=== PATIENT | male | born 1975 | race Caucasian/White ===

== ENCOUNTER 2016-10-09 06:18 | Inpatient (IN) | payer OTHER ==
[~2016-10-09] VITALS: Ht 182.9 cm; Wt 89.4 kg
--- NOTE | ~2016-10-09 | CARDNUC ---
[facility] [place] [address] CARDIAC NUCLEAR IMAGING REPORT Name: PASQUALE HANKINS Room #: 441-P [facility] IN [facility]#: [id number] Admission: 10/09/16 Attend Phys: Chapincito Abbott MD Discharge: Date of : 71 Date of Service: 10/10/16 1312 Report #: [id number] THIS REPORT FOR: //name// CC: [facility] physician/PCP Chapincito Abbott DATE OF SERVICE: 10/10/2016 Myocardial perfusion imaging study using regadenoson. PRIMARY CARE PHYSICIAN: 10/10/2016. INDICATION: Chest pains. GENDER: Male. CORONARY HISTORY: None. CARDIOVASCULAR RISK FACTORS: Diabetes mellitus, hypertension and tobacco use. CARDIAC MEDICATIONS: None. TYPE OF STUDY: The patient underwent a SPECT study. STRESS PROTOCOL: A total of 0.4 mg of regadenoson was injected intravenously, followed by Cardiolite. The patient did not ambulate during the procedure. HEMODYNAMIC DATA: The resting heart rate was 90 beats per minute, with a blood pressure of 119/70 mmHg. Following regadenoson infusion, the heart rate increased to 107 beats per minute and the systolic blood pressure did not significantly change. The patient had symptoms consistent with regadenoson, but no chest discomfort. ELECTROCARDIOGRAM: The resting electrocardiogram revealed sinus rhythm, otherwise normal. Following regadenoson, there were no significant arrhythmias or ST segment changes. PERFUSION IMAGING: Myocardial perfusion imaging was performed using Cardiolite, 11.0 mCi for the resting images and 34.0 mCi for the stress images. This was a same-day rest-stress imaging protocol. Gated SPECT images were obtained. Comparison of the post-pharmacologic stress and rest images reveal homogeneous uptake of isotope within all myocardial segments. The gated portion of the study revealed normal global and segmental LV systolic function, ejection fraction of 57%. [facility] [place] [address] CARDIAC NUCLEAR IMAGING REPORT Name: PASQUALE HANKINS Room #: 441-P [facility] IN [facility].#: [id number] Admission: 10/09/16 Attend Phys: Chapincito Abbott MD Discharge: Date of : 71 Date of Service: 10/10/16 1312 Report #: [id number] IMPRESSION: 1. Clinical response, nondiagnostic. 2. Stress ECG response, nonischemic. 3. Perfusion imaging, nonischemic. 4. Ventricular function, normal. CONCLUSION: This study is of low probability for inducible ischemia or prior infarct. There is normal global and segmental LV systolic function. <ELECTRONICALLY SIGNED> By: Christiano Ware MD 10/11/16 0758 1312 1415 Christiano Ware MD /nt
--- NOTE | ~2016-10-09 | EKG ---
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 : 1975 Requested By: Sampson Terrell Order Number: [id number] MD: Harjit Oliveira Measurements Intervals [place] Rate: 119 P: 76 [place]: 140 QRS: 268 QRSD: 80 T: 46 QT: 316 QTc: 445 Interpretive Statements Sinus tachycardia Markedly posterior QRS axis Borderline low voltage, extremity leads Compared to ECG 09/08/2016 13:54:26 Posterior QRS axis now present Poor R-wave progression no longer present Electronically Signed On 10-09-2016 8:10:46 HEAT TREAT INSPECTOR by Harjit Oliveira [email or web address] <ELECTRONICALLY SIGNED> By: Harjit Oliveira MD 10/09/16809 0 0 Harjit Oliveira MD /CHARANJIT
--- NOTE | ~2016-10-09 | 2DMMODE ---
[facility] [place] [address] 2 D/M-MODE ECHOCARDIOGRAM Name: PASQUALE HANKINS Room #: 441-P [facility]#: [id number] Admission: 10/09/16 Attend Phys: Chapincito Abbott MD Discharge: Date of : 71 Date of Service: 10/10/16 1031 Report #: [id number] THIS REPORT FOR: //name// Transthoracic Echocardiography Ordering physician: Christiano Ware MD Referring physician: Christiano Ware MD Horse Stud Worker: Stephanie Martell Indications/History: Chest pain. Hx: ETOH abuse. BP: 111 / HR: 80bpm Height: 72in Weight: 197.6lb 58 Study data: M-mode, complete 2D, complete spectral Doppler, and color Doppler. Location: Echo laboratory. Routine. Image quality was good. 2D measurements Normal Normal LVID ED 48.7mm 36-57 IVS ED 10.5mm 6-11 LVID ES 33.7mm 23-40 LVPW ED 11.1mm 6-11 LA volume 16ml/m2 16-28 AoRoot diam 36.2mm 21-37 index ED LVOT diameter 22mm 18-23 Findings: Left ventricle: The cavity size was normal. Wall thickness was normal. Systolic function was normal. The estimated ejection fraction was in the range of 55% to 60%. Wall motion was normal. Right ventricle: The cavity size was normal. Systolic function was normal. Right atrium: The atrium was normal in size. Left atrium: The atrium was normal in size. Volume index: 16ml/m2 (S). Aortic valve: Structurally normal valve. Doppler: There was no stenosis. No regurgitation. Peak velocity: 99.3cm/s (S). [address] [address] 2 D/M-MODE ECHOCARDIOGRAM Name: PASQUALE HANKINS Room #: 441-P [facility] IN M.R.#: [id number] Admission: 10/09/16 Attend Phys: Chapincito Abbott MD Discharge: Date of : 71 Date of Service: 10/10/16 1031 Report #: [id number] Mitral valve: Structurally normal valve. Doppler: There was no evidence for stenosis. No regurgitation. Peak E-wave velocity: 60cm/s. Peak A-wave velocity: 51.9cm/s. Tricuspid valve: Structurally normal valve. Doppler: There was no evidence for stenosis. Trivial regurgitation. Regurgitant peak velocity: 205.2cm/s. Peak RV-RA gradient: 17mm Hg (S). Pulmonic valve: Structurally normal valve. Doppler: There was no evidence for stenosis. Trivial regurgitation. Pericardium: There was no pericardial effusion. Aorta: Aortic root: The aortic root was normal in size. Pulmonary artery: Systolic pressure was estimated to be 22mm Hg. Diastolic function: Features are consistent with a pseudonormal left ventricular filling pattern, with concomitant abnormal relaxation and increased filling pressure (grade 2 diastolic dysfunction). Systemic veins: Inferior vena cava: The vessel was normal in size; the respirophasic diameter changes were in the normal range (= 50%). Conclusions 1. Left ventricle: Systolic function was normal. The estimated ejection fraction was in the range of 55% to 60%. Wall motion was normal. Features are consistent with a pseudonormal left ventricular filling pattern, with concomitant abnormal relaxation and increased filling pressure (grade 2 diastolic dysfunction). 2. Aortic valve: Structurally normal valve. There was no stenosis. No regurgitation. 3. Mitral valve: Structurally normal valve. No regurgitation. 4. Pulmonary arteries: Systolic pressure was estimated to be 22mm Hg. 5. Pericardium, extracardiac: There was no pericardial effusion. <ELECTRONICALLY SIGNED> By: Evaristo Delgaod MD, FAC 10/10/167 1031 06 Evaristo Delgado MD, FAC /ramona
[~2016-10-09 06:18] MED LIST: ACETAMINOPHEN650 M5 PO; ADVIL LIQUI-GE200 MG PO; ATIVAN1 MG PO; CHLORDIAZEPOXID10 MG PO; CHLORDIAZEPOXID25 M1 PO; CIPRO500 MG PO; DAILY VITAMIN1 EAC5 PO; FLAGYL500 MG PO; FOLIC ACID1 MG PO; HALDOL 0.5 MG0.5 M1 PO; IBUPROFEN 800800 MG PO; LANTUS SUBQ; LANTUS100 UNIT/M SUBQ; LANTUSSOLASTAR SUBQ; MULTI-VITAMIN1 EAC5 PO; NEURONTIN300 MG; NICOTINE TRANSD21 M1 TRANSDERM; NOVOLOG100 UNIT/1 SUBQ; PANTOPRAZOLE SO40 M1 PO; PERCOCET 5-3251 EACH PO; PRENATAL VITAMIN PO; PRILOSEC 20 MG20 MG PO; THIAMINE HCL100 MG PO; TRINATE TABLET1 TAB PO; TYLENOL325 MG PO; VISTARIL 25 MG25 M1 PO; VITAMIN B-1100 M1 PO; VITAMIN B-1100 M2 PO; ZOFRAN ODT4 MG DISSOLVE; ZOFRAN ODT4 MG PO
[2016-10-09 06:24] VITALS: BP 146/98
[2016-10-09 06:54] LABS: HEMATOCRIT 45.5 % (42.0-52.0); HEMOGLOBIN 15.5 gm/dL (14.0-18.0); MCH 29.1 pg (26.0-34.0); MCHC 34.2 % (28.0-37.0); MCV 85.2 fL (80.0-100.0); PLATELET COUNT 240 thou/uL (150-400); RBC 5.34 mil/uL (4.50-6.00); RDW 14.2 % (10.5-14.5); WBC 13.5 thou/uL (4.0-11.0)
[2016-10-09 06:55] LABS: MANUAL DIFF YES
[2016-10-09 06:57] LABS: ANION GAP 16 mmol/L (7-16); BUN 16 mg/dL (7-18); CALCIUM 8.7 mg/dL (8.5-10.1); CHLORIDE 97 mmol/L (98-107); CO2 23 mmol/L (21-32); CREATININE 0.9 mg/dL (0.6-1.3); GLUCOSE 332 mg/dL (70-99); POTASSIUM 4.3 mmol/L (3.5-5.1); SODIUM 136 mmol/L (136-145)
[2016-10-09 07:13] LABS: ACETAMINOPHEN < 2 ug/mL (10-30); ALBUMIN 3.8 g/dL (3.4-5.0); ALKALINE PHOSPHATASE 116 U/L (46-116); CK-MB MASS 1.2 ng/mL (<0.5-3.6); MAGNESIUM 1.7 mg/dL (1.8-2.4); NT-PRO BRAIN NAT PEPTIDE 23 pg/mL (<300); SALICYLATE 2.7 mg/dL (2.8-20.0); SGOT 10 U/L (15-37); SGPT 18 U/L (30-65); TOTAL BILIRUBIN 0.5 mg/dL (<0.1-1.0); TROPONIN-I < 0.04 ng/mL (<0.04-0.07)
[2016-10-09 07:18] LABS: APTT 26.7 Seconds (24.5-32.8); PROTIME 10.2 Seconds (9.3-11.4)
[2016-10-09 07:41] LABS: ABSOLUTE NEUTROPHILS 10.8 thou/uL (1.4-8.2); ANISOCYTOSIS 1+; TOTAL CELL COUNT 100
[2016-10-09] MEDS ORDERED: LANTUS100 UNIT/M SUBQ (08:39)
[2016-10-09 09:27] VITALS: BP 127/79
[2016-10-09 12:33] VITALS: BP 111/72
[2016-10-09 12:57] LABS: CHOLESTEROL 209 mg/dL (<200); HDL CHOLESTEROL 49 mg/dL (>40); LDL CHOLESTEROL 127 mg/dL (<100); TC:HDL 4.3 Ratio (Not establshd); TRIGLYCERIDE 167 mg/dL (<150); VLDL 33 mg/dL (<40)
[2016-10-09 17:12] VITALS: BP 102/67
[2016-10-09 20:30] VITALS: BP 102/62
[2016-10-09 23:14] LABS: FOLIC ACID > 19.9 ng/mL (>3.0)
[2016-10-09 23:55] VITALS: BP 109/66
[2016-10-10 03:55] VITALS: BP 111/58
[2016-10-10 04:00] VITALS: BP 154/70
[2016-10-10 13:07] VITALS: BP 130/87
[2016-10-10 17:48] VITALS: BP 130/79
[2016-10-10 20:20] VITALS: BP 103/59
[2016-10-11 03:40] VITALS: BP 108/73
[2016-10-11 06:15] LABS: HEMATOCRIT 46.7 % (42.0-52.0); HEMOGLOBIN 15.7 gm/dL (14.0-18.0); MCH 28.8 pg (26.0-34.0); MCHC 33.5 % (28.0-37.0); RBC 5.43 mil/uL (4.50-6.00); RDW 14.2 % (10.5-14.5); WBC 6.8 thou/uL (4.0-11.0)
[2016-10-11 06:27] LABS: CALCIUM 8.6 mg/dL (8.5-10.1); CREATININE 0.8 mg/dL (0.6-1.3); POTASSIUM 3.9 mmol/L (3.5-5.1)
[2016-10-11 08:56] VITALS: BP 108/76
[2016-10-11 13:07] VITALS: BP 107/65
[2016-10-11 16:44] VITALS: BP 106/73
[2016-10-11 21:25] VITALS: BP 111/73
[2016-10-12 03:45] VITALS: BP 111/74
[2016-10-12 07:08] VITALS: BP 93/63
[2016-10-12 10:34] VITALS: BP 93/63
[2016-10-12 10:54] VITALS: BP 93/63
[2016-10-12 11:09] VITALS: BP 116/79
[2016-10-12] MEDS ORDERED: XANAX 0.5 MG0.5 MG PO (13:04)
[2016-10-12] MEDS ORDERED: VITAMIN B-150 MG PO (13:04)
== END 2016-10-12 13:50 | disposition home or self-care (01) | DRG 897 ==
LOC: ER 06:18 → EROBS 08:05 → 4S 08:05
PROVIDERS: Emergency Medicine; Family Medicine; Nurse Practitioner
DX: F10.239 Alcohol dependence with withdrawal, unspecified (principal); F10.229 Alcohol dependence with intoxication, unspecified; E10.9 Type 1 diabetes mellitus without complications; F14.10 Cocaine abuse, uncomplicated; Z79.4 Long term (current) use of insulin; E10.65 Type 1 diabetes mellitus with hyperglycemia; F17.210 Nicotine dependence, cigarettes, uncomplicated; E83.42 Hypomagnesemia; Z60.2 Problems related to living alone; Y90.0 Blood alcohol level of less than 20 mg/100 ml; D64.9 Anemia, unspecified; E78.00 Pure hypercholesterolemia, unspecified; I20.9 Angina pectoris, unspecified; F41.9 Anxiety disorder, unspecified; Z79.899 Other long term (current) drug therapy
CPT/HCPCS: 10100

== ENCOUNTER 2016-10-17 17:40 | Emergency (ER) | payer OTHER ==
[~2016-10-17] VITALS: Ht 182.9 cm; Wt 90.7 kg
[~2016-10-17 17:40] MED LIST changes: +VITAMIN B-150 MG PO; +XANAX 0.5 MG0.5 MG PO
[2016-10-17 17:42] VITALS: BP 133/89
== END 2016-10-17 19:01 | disposition left against medical advice (07) ==
LOC: ER 17:40
DX: M54.6 Pain in thoracic spine (principal); E10.9 Type 1 diabetes mellitus without complications; F17.210 Nicotine dependence, cigarettes, uncomplicated; F15.10 Other stimulant abuse, uncomplicated; V47.5XXA Car driver injured in collision with fixed or stationary object in traffic accident, initial encounter; Y93.I9 Activity, other involving external motion; Y92.488 Other paved roadways as the place of occurrence of the external cause; Y99.8 Other external cause status

== ENCOUNTER 2019-02-01 16:21 | Inpatient (IN) | payer OTHER ==
[2019-02-01] VITALS (7 sets, daily range): BP systolic 123–143; BP diastolic 79–94
[~2019-02-01] VITALS: Ht 185.4 cm; Wt 79.4 kg
[~2019-02-01 16:21] MED LIST changes: -NEURONTIN300 MG; +NEURONTIN300 MG PO
[2019-02-01 16:43] LABS: ABSOLUTE NEUTROPHILS 8.7 thou/uL (1.4-8.2); BASOPHILS 0.8 % (0.0-2.0); EOSINOPHILS 0.6 % (0.0-3.0); HEMATOCRIT 50.1 % (42.0-52.0); HEMOGLOBIN 16.7 gm/dL (14.0-18.0); LYMPHOCYTES 17.6 % (24.0-44.0); MCHC 33.3 g/dL (28.0-37.0); MCV 86.9 fL (80.0-100.0); MONOCYTES 8.9 % (1.0-8.0); PLATELET COUNT 275 thou/uL (150-400); POLYS 72.1 % (36.0-66.0); RBC 5.76 mil/uL (4.50-6.00); RDW 13.9 % (10.5-14.5); WBC 12.1 thou/uL (4.0-11.0)
[2019-02-01 16:52] LABS: CALCIUM 10.1 mg/dL (8.5-10.1); CREATININE 1.3 mg/dL (0.7-1.3); POTASSIUM 4.3 mmol/L (3.5-5.1)
[2019-02-01 16:53] LABS: BE(vivo) -11.4 mmol/L (-2 to +3); HCO3 12.3 mmol/L (22.0-26.0); PCO2 VENOUS 24.4 mmHg (41.0-51.0); PO2 VENOUS 40.7 mmHg (35.0-45.0)
[2019-02-01 16:58] LABS: ALBUMIN 4.2 g/dL (3.4-5.0); TOTAL BILIRUBIN 1.3 mg/dL (<0.1-1.0); TOTAL PROTEIN 8.2 g/dL (6.4-8.2)
[2019-02-01] MEDS ORDERED: TRESIBA FL100 UNIT/1 SUBQ (17:03)
[2019-02-01 17:31] LABS: URINE BILIRUBIN NEGATIVE (Negative); URINE BLOOD TRACE (Negative); URINE CLARITY CLEAR; URINE COLOR YELLOW; URINE GLUCOSE-RANDOM* 3+ (Negative); URINE KETONES 3+ (Negative); URINE LEUKOCYTES-REFLEX NEGATIVE (Negative); URINE NITRITE-REFLEX NEGATIVE (Negative); URINE PROTEIN (DIPSTICK) TRACE (Negative); URINE SPECIFIC GRAVITY >= 1.030 (1.005-1.035); URINE UROBILINOGEN 0.2 E.U./dl (0.2-1.0)
[2019-02-01 17:37] LABS: AMP/METHAMP Negative (Negative); BARBITURATES Negative (Negative); BENZODIAZEPINES Negative (Negative); COCAINE Negative (Negative); METHADONE Negative (Negative); OPIATES Negative (Negative); PCP Negative (Negative)
[2019-02-01 17:42] LABS: MAGNESIUM 1.9 mg/dL (1.8-2.4); PHOSPHORUS 3.9 mg/dL (2.5-4.9)
[2019-02-01 18:21] LABS: CALCIUM 8.5 mg/dL (8.5-10.1); CREATININE 1.1 mg/dL (0.7-1.3); POTASSIUM 4.3 mmol/L (3.5-5.1)
[2019-02-01 18:50] LABS: FOLIC ACID 18.6 ng/mL (8.6-58.9)
[2019-02-01 18:59] LABS: ALBUMIN 4.4 g/dL (3.4-5.0); CALCIUM 10.4 mg/dL (8.5-10.1); CREATININE 1.3 mg/dL (0.7-1.3); POTASSIUM 4.7 mmol/L (3.5-5.1)
[2019-02-01 20:13] LABS: ALBUMIN 3.5 g/dL (3.4-5.0); CALCIUM 8.6 mg/dL (8.5-10.1); CREATININE 1.1 mg/dL (0.7-1.3); PHOSPHORUS 3.3 mg/dL (2.5-4.9); POTASSIUM 4.6 mmol/L (3.5-5.1)
[2019-02-01 22:41] LABS: ALBUMIN 3.3 g/dL (3.4-5.0); CALCIUM 8.2 mg/dL (8.5-10.1); CREATININE 1.1 mg/dL (0.7-1.3); MAGNESIUM 1.8 mg/dL (1.8-2.4); PHOSPHORUS 2.1 mg/dL (2.5-4.9); POTASSIUM 3.7 mmol/L (3.5-5.1)
[2019-02-02] VITALS (19 sets, daily range): BP systolic 104–128; BP diastolic 56–78
[2019-02-02 02:44] LABS: ABSOLUTE NEUTROPHILS 4.9 thou/uL (1.4-8.2); BASOPHILS 0.8 % (0.0-2.0); EOSINOPHILS 2.3 % (0.0-3.0); HEMATOCRIT 40.6 % (42.0-52.0); LYMPHOCYTES 30.5 % (24.0-44.0); MCH 28.9 pg (26.0-34.0); MCHC 34.1 g/dL (28.0-37.0); MCV 84.6 fL (80.0-100.0); MONOCYTES 9.6 % (1.0-8.0); PLATELET COUNT 214 thou/uL (150-400); POLYS 56.8 % (36.0-66.0); RDW 13.6 % (10.5-14.5); WBC 8.7 thou/uL (4.0-11.0)
[2019-02-02 02:46] LABS: HEMOGLOBIN 13.9 gm/dL (14.0-18.0)
[2019-02-02 02:51] LABS: CALCIUM 7.9 mg/dL (8.5-10.1); CREATININE 0.8 mg/dL (0.7-1.3); POTASSIUM 3.3 mmol/L (3.5-5.1)
[2019-02-02 02:55] LABS: ALBUMIN 3.1 g/dL (3.4-5.0); PHOSPHORUS 1.5 mg/dL (2.5-4.9)
--- NOTE | 2019-02-02 05:16 | NUR ---
ASSUMED PATIENT CARE AT 1900. PATIENT JUST PREVIOUSLY ARRIVED TO THE UNIT. INITIATED DKA PROTOCOL AND HUNG INSULIN AND FLUIDS. PATIENT C/O LUQ ABDOMINAL PAIN. NOTIFED QUARRY PLUG AND FEATHER DRILLER FOR ORDERS. PATIENT AAOX4 AND IS ON RA. PATIENT NOTED TO HAVE 2 LACERATIONS AND 1 ABRASION ON THE RIGHT KNEE FROM A FALL LAST WEEK. VITAL SIGNS REMAINED STABLE THROUGOUT THIS SHIFT. PATIENT IS NO LONGER IN DKA AND IS PROGRESSING TOWARDS GOAL.
[2019-02-02 06:45] LABS: CALCIUM 7.8 mg/dL (8.5-10.1); CREATININE 0.7 mg/dL (0.7-1.3); PHOSPHORUS 1.9 mg/dL (2.5-4.9); POTASSIUM 3.9 mmol/L (3.5-5.1); TOTAL BILIRUBIN 0.9 mg/dL (<0.1-1.0); TOTAL PROTEIN 5.8 g/dL (6.4-8.2)
--- NOTE | 2019-02-02 16:03 | NUR ---
ASSUMED CARE OF PT AT 0645. START SSI AND LONG ACTING INUSLIN. ADAM MEALS. RESTED WELL BEFORE LUNCH. PLEASANT, NO NEW COMPLAINTS. NO N/V. PRN NORCO FOR LEFT RIB PAIN. TX TO MSTELE. PSYCH WANTS PT TO DC TO REHAB FACILITY OR F/U IN OFFICE. PT WOULD LIKE TO SPEAK TO SPIRITUAL CARE TOMORROW. PROGRESSING TOWARD PLAN OF CARE.
--- NOTE | 2019-02-02 17:30 | NUR ---
PT ARRIVED TO ROOM 456 FROM ICU [id number] PT ALERT XS 4 NO PAIN NO RESP DISTRESS. IV FLUIDS STARTED ORDERED. TELE MONITOR APPLIED AND STRIP RAN FOR CHART.BLOOD SUGARS TO BE MONITORED. HAS AMOS TO ABRASION /STITCHES TO RIGHT KNEE. MOM AT BEDSIDE.
[2019-02-03 01:08] LABS: GLYCOHEMOGLOBIN (HGB A1C) 9.4 % (4.8-5.6)
--- NOTE | 2019-02-03 02:34 | NUR ---
ASSUMED CARE AROUND 1900. AXOX4. NO S/S ACUTE DISTRESS NOTED OR REPORTED AT THIS TIME. WILL CONT TO MONITOR FOR ANY CHAGNES IN CONDITION.
[2019-02-03 05:26] VITALS: BP 116/73
[2019-02-03 06:17] LABS: CREATININE 0.7 mg/dL (0.7-1.3); MAGNESIUM 1.6 mg/dL (1.8-2.4); PHOSPHORUS 2.7 mg/dL (2.5-4.9); POTASSIUM 3.7 mmol/L (3.5-5.1)
[2019-02-03 08:48] VITALS: BP 116/73
[2019-02-03] MEDS ORDERED: NOVOLOG100 UNIT/1 SUBQ (10:44)
[2019-02-03 14:58] VITALS: BP 102/61
--- NOTE | 2019-02-03 16:22 | NUR ---
PT ADMITTED RELATED TO DKA. CM REVIEWED CHART AND SPOKE WITH CARE TEAM. CM MET WITH PT AT BEDSIDE THIS DAY. PT IS A&O X4. CM ROLE INTRODUCED. PT INDICATED HE LIVES ALONE IN A HOUSE WITH 2 STEPS TO ENTER AND NO STEPS INSIDE. 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 PT INDICATED NO DME OF HH HX. CM PROVIDED LIST OF PCP'S HERE AT [facility]. PT INDICATED HE PLANS TO RETURN HOME ONCE MEDICALLY STABLE. THERE ARE NO ANTICIPATED NEEDS UPON DC. CM ABLE TO ASSIST SHOULD ANY NEEDS ARISE.
--- NOTE | 2019-02-03 18:35 | NUR ---
PT A&OX4, VSS, PAIN RIGHT FLANK AT 9 AT TIMES. PAIN IS MANAGED WITH HYDROCODONE. PT AWAITING EGD AND WILL BE NPO AT MIDNIGHT. FALL PRECAUTIONS IN PLACE. CIWA SCORE 1-3, NO ABNORMAL WITHDRAWAL SYMPTOMS NOTED AT THIS TIME. WILL CONTINUE TO MONITOR.
[2019-02-03 20:25] VITALS: BP 107/76
--- NOTE | 2019-02-04 03:17 | NUR ---
ASSUMED CARE AROUMD 1900. AXOX4. KEPT NPO P MN FOR EGD IN AM. NO S/S ACUTE DISTRESS NOTED OR REPORTED AT THIS TIME. WILL CONT TO MONITOR FOR ANY CHAGNES IN CONDITION.
[2019-02-04 04:54] VITALS: BP 97/62
[2019-02-04 07:44] VITALS: BP 102/57
[2019-02-04] MEDS ORDERED: OMEPRAZOLE 20 M20 M1 PO (12:05)
[2019-02-04] MEDS ORDERED: CARAFATE 1 GM TA1 G1 PO (12:05)
[2019-02-04 12:20] VITALS: BP 102/57
--- NOTE | 2019-02-05 17:53 | HC ---
[facility] [place] [address] CONSULTATION Name: PASQUALE HANKINS Room #: 456-P [facility] IN ..#: [id number] Admission: 02/01/19 ������������������ Attend Phys: Karime Horton Discharge: 02/04/19 ������������������ Date of : 71 Report #: [id number] THIS REPORT FOR: //name// CC: [facility] physician/PCP Mike Smith DATE OF SERVICE: 02/02/2019 HISTORY OF PRESENT ILLNESS: This patient was admitted because of concerns about alcohol intoxication and need for withdrawal. The patient also has some comorbid depression that certainly has been amplified lately as well as exacerbation of comorbidities including diabetes with concerns about diabetic ketoacidosis and hyperglycemia. The patient admits that last night he was having some passive thoughts of not wanting to live "something happen, I did not wake up, seem like that could have been okay." He was somewhat scared by these thoughts too and this is generally not a thought he has while sober that he has continued to have this morning, "I feel like a failure and that I am failing in everything," "I should have grown out of this by now." The patient is motivated for making the change, getting control of sobriety and addressing fluctuations in mood. PAST PSYCHIATRIC HISTORY: He has seen a therapist on a few occasions but never anything ongoing. Does not appear he has been on antidepressants before. There is a longstanding history of alcohol use disorder. FAMILY HISTORY: Alcohol use disorder; substance use disorder history; longstanding alcohol use disorder, can drink up to a fifth a day, sometimes more than this, generally does not drink during the day but after work, but notes there are days when he will get intoxicated after work and will not feel too hot the next day, "not going to work and start drinking earlier." There is mention in the chart about cocaine abuse but does not appear there has been much of a factor lately. ALLERGIES: No known medication allergies. CURRENT MEDICATIONS: Include alcohol detox protocol, thiamine and IV fluids. PAST MEDICAL HISTORY: Diabetes and alcohol withdrawal. SOCIAL HISTORY: He is self-employed. He has a girlfriend. Girlfriend is sober. Lives alone. ASSETS: Intelligent, motivated for treatment. LIABILITIES: Dual diagnoses. [facility] [address] [place] [address] CONSULTATION Name: PASQUALE HANKINS Room #: 456-P [facility] IN M.R.#: [id number] Admission: 02/01/19 ������������������ Attend Phys: Karime Horton Discharge: 02/04/19 ������������������ Date of : 71 Report #: [id number] MENTAL STATUS EXAMINATION: male, ectomorphic build, casually dressed, depressed mood and restricted affect. Normal rate, rhythm and speech. He is articulate. No suicidal ideation. No homicidal ideation. No hallucinations. No delusions. Insight and judgment fair. DIAGNOSES: Depressive disorder, not otherwise specified; alcohol use disorder. RECOMMENDATIONS: Continue with Ativan detox protocol, did talk to the patient about options as far as rehabilitation including residential program. However, he does not want residential program, could start in our office after discharge including individual sessions with James Morton. We will hold off on the 24 hours, getting a little bit further through the detox before looking at an antidepressant. He has never been on any of these before. I also talked for medicines for alcohol craving. Supportive therapy, substance use disorder counseling provided. ��������������������������������������������� <ELECTRONICALLY SIGNED> ���������������������������������������� By: Rosa Goodman MD ��������������������������������������������� 02/05/19 1753 1018 0248 Jasper Velarde MD /nt
--- NOTE | 2019-02-06 10:06 | PATH ---
[facility] [address] [address] PATHOLOGY RPT PROCEDURE Name: PASQUALE NAJERA Anuel Room #: 456-P [facility] IN M.R.#: [id number] ������������������ Admission: 02/01/19 ������������������ Date of : 71 Discharge: 02/04/19 Report #: [id number] Path Case #: [id number] [facility] Accession Number: [id number] . 01 Material submitted: . PART A: gastrointestinal site - RANDOM GASTRIC BIOPSY PART B: esophagus - BX OF ESOPHAGUS . 01 Clinical history: . Nausea, vomiting, dysphagia . 02 Diagnosis: A. Gastric mucosa, random gastric biopsy, endoscopic biopsy: - Mild chronic active gastritis with features of reactive gastropathy. - Negative for intestinal metaplasia or atrophy. - Negative for Helicobacter pylori (properly controlled immunohistochemical stain performed). . B. Gastroesophageal mucosa, esophageal, endoscopic biopsy: - Marked acute esophagitis associated with ulceration (please see comment). - Negative for intestinal metaplasia or dysplasia. - Focal gastric cardia-type mucosa present without any abnormalities. (IUV:johanne; 02/05/2019) QMS/02/05/2019 . 02 Comment: A GMS fungal special stain is performed on the esophageal biopsy tissue and it shows no definite fungal hyphal elements.AE1/AE3 immunohistochemical stain and CD45 immunohistochemical stain are performed on block B1 to assess the glandular appearing areas within the fibrinopurulent material. There are no dysplastic elements or malignant cells identified. There are no viral inclusions identified histologically as well. (IUV:johanne; 02/05/2019) . 02 Electronically signed: . Vidhi Diaz MD, Pathologist NPI- [id number] . 01 Gross description: . A. The specimen is received in formalin, labeled "Pasquale Najera, random gastric BX", are several irregular fragments of mederos soft tissues measuring 0.5 x 0.4 x 0.1 cm in aggregate, entirely submitted in A1. . B. The specimen is received in formalin, labeled "Pasquale Najera, BX of esophageal", are several mederos-johnson, soft tissue fragments measuring 0.4 x 0.3 x 0.1 cm in aggregate, entirely submitted in B1. [address] [address] PATHOLOGY RPT PROCEDURE Name: PASQUALE NAJERA E Room #: 456-P DIS IN M.R.#: [id number] ������������������ Admission: 02/01/19 ������������������ Date of : 71 Discharge: 02/04/19 Report #: [id number] Path Case #: [id number] (SWS; 02/04/2019) . . . . . . . . . . SHS/SHS . 02 Pathologist provided ICD-10: K29.50, K31.9, K20.9 . 02 CPT . 901741, 374059, 221321, O15924, F59264 Specimen Comment: A courtesy copy of this report has been sent to Specimen Comment: [phone], . Specimen Comment: Report sent to / DR SLADE Performed at: [address], [place] [id number] MD Ryan Wilson MD Phone: [phone] Performed at: [address] [id number] MD Vidhi Diaz MD Phone: [phone]
== END 2019-02-04 14:00 | disposition home or self-care (01) | DRG 377 ==
LOC: ER 16:21 → EROBS 18:04 → 4W 18:04 → ICU 18:34 → 4W 18:48 → ENTRNSPT 02-04 13:53 → EDTRNSPTSTS 02-04 13:54 → 4W 02-04 14:00
PROVIDERS: Internal Medicine; Nurse Practitioner Acute Care; Physician Assistant; ADMIT Hospitalist
PROC: 0DB58ZX Excision of Esophagus, Via Natural or Artificial Opening Endoscopic, Diagnostic (ICD-10-PCS; principal; 2019-02-04)
PROC: 0DB68ZX Excision of Stomach, Via Natural or Artificial Opening Endoscopic, Diagnostic (ICD-10-PCS; principal; 2019-02-04)
DX: K29.21 Alcoholic gastritis with bleeding (principal); E10.10 Type 1 diabetes mellitus with ketoacidosis without coma; F32.9 Major depressive disorder, single episode, unspecified; F14.90 Cocaine use, unspecified, uncomplicated; S80.211A Abrasion, right knee, initial encounter; R13.10 Dysphagia, unspecified; K20.9 Esophagitis, unspecified; E10.65 Type 1 diabetes mellitus with hyperglycemia; K21.9 Gastro-esophageal reflux disease without esophagitis; E86.0 Dehydration; F10.10 Alcohol abuse, uncomplicated; F17.210 Nicotine dependence, cigarettes, uncomplicated; Z81.1 Family history of alcohol abuse and dependence; Z71.6 Tobacco abuse counseling; Z79.899 Other long term (current) drug therapy; X58.XXXA Exposure to other specified factors, initial encounter; Y93.89 Activity, other specified; Y92.89 Other specified places as the place of occurrence of the external cause; Y99.8 Other external cause status
CPT/HCPCS: 10045; 10203; 62110; 62900; 70005

== ENCOUNTER 2019-04-02 10:35 | Emergency (ER) | payer OTHER ==
[~2019-04-02] VITALS: Ht 182.9 cm; Wt 81.7 kg
[~2019-04-02 10:35] MED LIST changes: +CARAFATE 1 GM TA1 G1 PO; +OMEPRAZOLE 20 M20 M1 PO; +TRESIBA FL100 UNIT/1 SUBQ
[2019-04-02 11:54] LABS: HEMATOCRIT 48.2 % (42.0-52.0); HEMOGLOBIN 16.7 gm/dL (14.0-18.0); MCH 29.3 pg (26.0-34.0); MCHC 34.7 g/dL (28.0-37.0); MCV 84.5 fL (80.0-100.0); PLATELET COUNT 204 thou/uL (150-400); WBC 6.6 thou/uL (4.0-11.0)
[2019-04-02 12:03] LABS: CALCIUM 8.9 mg/dL (8.5-10.1); CREATININE 0.8 mg/dL (0.7-1.3); POTASSIUM 4.1 mmol/L (3.5-5.1)
[2019-04-02 12:09] LABS: ALBUMIN 3.6 g/dL (3.4-5.0); TOTAL PROTEIN 6.9 g/dL (6.4-8.2)
[2019-04-02 12:32] LABS: ABSOLUTE NEUTROPHILS 4.3 thou/uL (1.4-8.2); ANISOCYTOSIS SLIGHT
[2019-04-02 14:27] LABS: URINE BILIRUBIN NEGATIVE (Negative); URINE BLOOD NEGATIVE (Negative); URINE CLARITY CLEAR; URINE COLOR YELLOW; URINE GLUCOSE-RANDOM* 3+ (Negative); URINE KETONES 1+ (Negative); URINE LEUKOCYTES-REFLEX NEGATIVE (Negative); URINE NITRITE-REFLEX NEGATIVE (Negative); URINE PROTEIN (DIPSTICK) NEGATIVE (Negative)
[2019-04-02] MEDS ORDERED: ONDANSETRON HCL4 M2 PO (14:30)
[2019-04-02 14:34] VITALS: BP 141/82
[2019-04-02 14:40] LABS: AMP/METHAMP Negative (Negative); BARBITURATES Negative (Negative); BENZODIAZEPINES Negative (Negative); COCAINE Negative (Negative); METHADONE Negative (Negative); OPIATES Negative (Negative); PCP Negative (Negative)
--- NOTE | 2019-04-03 09:35 | EKG ---
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 : 1975 Requested By: Marion Shukla Order Number: [id number] MD: Evaristo Delgado Measurements Intervals [place] Rate: 100 P: 73 [place]: 134 QRS: -72 QRSD: 88 T: 61 QT: 348 QTc: 449 Interpretive Statements Sinus tachycardia Left anterior fascicular block Compared to ECG 10/09/2016 06:21:17 No significant change was found Electronically Signed On 04-03-2019 9:35:43 CDT by Evaristo Delgado [email or web address] ��������������������������������������������� <ELECTRONICALLY SIGNED> ���������������������������������������� By: Evaristo Delgado MD, [facility] ��������������������������������������������� 04/03/19 0935 1052 1052 Evaristo Delgado MD, FACC /EPI
== END 2019-04-02 15:54 | disposition home or self-care (01) ==
LOC: ER 10:35
PROVIDERS: Nurse Practitioner Family
DX: F10.239 Alcohol dependence with withdrawal, unspecified (principal); Y90.6 Blood alcohol level of 120-199 mg/100 ml; E10.8 Type 1 diabetes mellitus with unspecified complications; F17.210 Nicotine dependence, cigarettes, uncomplicated; Z79.899 Other long term (current) drug therapy

== ENCOUNTER 2019-04-03 02:42 | Inpatient (IN) | payer OTHER ==
[~2019-04-03] VITALS: Ht 182.9 cm; Wt 79.4 kg
[2019-04-03] VITALS (8 sets, daily range): BP systolic 111–144; BP diastolic 58–88
[~2019-04-03 02:42] MED LIST changes: +ONDANSETRON HCL4 M2 PO
[2019-04-03 04:16] LABS: POTASSIUM 4.2 mmol/L (3.5-5.1)
[2019-04-03 04:22] LABS: ALBUMIN 4.1 g/dL (3.4-5.0); DIRECT BILIRUBIN 0.3 mg/dL (<0.1-0.3); TOTAL BILIRUBIN 1.1 mg/dL (<0.1-1.0); TOTAL PROTEIN 7.6 g/dL (6.4-8.2)
[2019-04-03 04:23] LABS: ABSOLUTE NEUTROPHILS 10.8 thou/uL (1.4-8.2); BASOPHILS 0.8 % (0.0-2.0); EOSINOPHILS 0.4 % (0.0-3.0); HEMATOCRIT 50.7 % (42.0-52.0); HEMOGLOBIN 16.9 gm/dL (14.0-18.0); LYMPHOCYTES 10.8 % (24.0-44.0); MCH 28.9 pg (26.0-34.0); MCHC 33.3 g/dL (28.0-37.0); MCV 86.6 fL (80.0-100.0); MONOCYTES 8.5 % (1.0-8.0); PLATELET COUNT 225 thou/uL (150-400); POLYS 79.5 % (36.0-66.0); RBC 5.86 mil/uL (4.50-6.00); RDW 13.7 % (10.5-14.5); WBC 13.5 thou/uL (4.0-11.0)
[2019-04-03 05:57] LABS: AMP/METHAMP Negative (Negative); BARBITURATES Negative (Negative); BENZODIAZEPINES Negative (Negative); COCAINE Negative (Negative); METHADONE Negative (Negative); OPIATES Negative (Negative); PCP Negative (Negative)
[2019-04-04 04:24] VITALS: BP 125/86
[2019-04-04 05:10] LABS: HEMATOCRIT 40.4 % (42.0-52.0); MCHC 33.5 g/dL (28.0-37.0); MCV 86.5 fL (80.0-100.0); RBC 4.67 mil/uL (4.50-6.00); RDW 13.8 % (10.5-14.5); WBC 8.1 thou/uL (4.0-11.0)
[2019-04-04 05:13] LABS: HEMOGLOBIN 13.5 gm/dL (14.0-18.0)
[2019-04-04 05:16] LABS: CALCIUM 7.9 mg/dL (8.5-10.1); CREATININE 0.9 mg/dL (0.7-1.3); POTASSIUM 3.5 mmol/L (3.5-5.1)
[2019-04-04 07:31] VITALS: BP 108/63
[2019-04-04 11:16] VITALS: BP 108/63
== END 2019-04-04 11:34 | disposition home or self-care (01) | DRG 639 ==
LOC: ER 02:42 → EROBS 06:14 → 3W 07:38
PROVIDERS: Emergency Medicine; Hospitalist; ADMIT Hospitalist
DX: E10.10 Type 1 diabetes mellitus with ketoacidosis without coma (principal); F17.210 Nicotine dependence, cigarettes, uncomplicated; F10.129 Alcohol abuse with intoxication, unspecified; Z91.14 Patient's other noncompliance with medication regimen; Z79.4 Long term (current) use of insulin; Z71.6 Tobacco abuse counseling
CPT/HCPCS: 10879

== ENCOUNTER 2019-06-17 21:46 | Emergency (ER) | payer OTHER ==
[~2019-06-17] VITALS: Ht 182.9 cm; Wt 79.4 kg
[2019-06-17 22:41] LABS: ABSOLUTE NEUTROPHILS 3.2 thou/uL (1.4-8.2); BASOPHILS 0.3 % (0.0-2.0); EOSINOPHILS 1.2 % (0.0-3.0); HEMATOCRIT 47.5 % (42.0-52.0); LYMPHOCYTES 37.4 % (24.0-44.0); MCHC 33.7 g/dL (28.0-37.0); MONOCYTES 9.1 % (1.0-8.0); PLATELET COUNT 226 thou/uL (150-400); RBC 5.53 mil/uL (4.50-6.00); RDW 14.3 % (10.5-14.5); WBC 6.2 thou/uL (4.0-11.0)
[2019-06-17 22:46] LABS: CALCIUM 8.8 mg/dL (8.5-10.1); CREATININE 0.8 mg/dL (0.7-1.3); POTASSIUM 4.1 mmol/L (3.5-5.1)
[2019-06-17 22:53] LABS: ALBUMIN 3.7 g/dL (3.4-5.0); DIRECT BILIRUBIN 0.1 mg/dL (<0.1-0.3); TOTAL BILIRUBIN 0.7 mg/dL (<0.1-1.0); TOTAL PROTEIN 7.1 g/dL (6.4-8.2)
[2019-06-18 02:43] VITALS: BP 125/80
== END 2019-06-18 02:45 | disposition home or self-care (01) ==
LOC: ER 21:46
PROVIDERS: Emergency Medicine
DX: F10.129 Alcohol abuse with intoxication, unspecified (principal); R53.81 Other malaise; F41.0 Panic disorder [episodic paroxysmal anxiety]; E10.9 Type 1 diabetes mellitus without complications; F17.210 Nicotine dependence, cigarettes, uncomplicated; Z79.4 Long term (current) use of insulin; Y90.9 Presence of alcohol in blood, level not specified

== ENCOUNTER 2019-08-22 15:45 | Inpatient (IN) | payer OTHER ==
[~2019-08-22] VITALS: Ht 182.9 cm; Wt 87.8 kg
[2019-08-22] VITALS (10 sets, daily range): BP systolic 92–131; BP diastolic 54–92
[2019-08-22] MEDS ORDERED: LANTUS SUBQ (16:07)
[2019-08-22 16:21] LABS: URINE BILIRUBIN NEGATIVE (Negative); URINE BLOOD TRACE (Negative); URINE CLARITY CLEAR; URINE COLOR YELLOW; URINE GLUCOSE-RANDOM* 2+ (Negative); URINE KETONES 1+ (Negative); URINE LEUKOCYTES-REFLEX NEGATIVE (Negative); URINE NITRITE-REFLEX NEGATIVE (Negative); URINE PROTEIN (DIPSTICK) TRACE (Negative); URINE SPECIFIC GRAVITY >= 1.030 (1.005-1.035); URINE UROBILINOGEN 0.2 E.U./dl (0.2-1.0)
[2019-08-22 16:21] LABS: ABSOLUTE NEUTROPHILS 8.8 thou/uL (1.4-8.2); BASOPHILS 1.1 % (0.0-2.0); HEMATOCRIT 45.5 % (42.0-52.0); HEMOGLOBIN 14.9 gm/dL (14.0-18.0); LYMPHOCYTES 7.7 % (24.0-44.0); MCH 30.1 pg (26.0-34.0); MCHC 32.8 g/dL (28.0-37.0); MCV 91.7 fL (80.0-100.0); MONOCYTES 7.2 % (1.0-8.0); PLATELET COUNT 336 thou/uL (150-400); RBC 4.96 mil/uL (4.50-6.00); RDW 15.7 % (10.5-14.5); WBC 10.5 thou/uL (4.0-11.0)
[2019-08-22 16:30] LABS: CALCIUM 9.6 mg/dL (8.5-10.1); POTASSIUM 5.1 mmol/L (3.5-5.1)
[2019-08-22 16:36] LABS: ALBUMIN 4.1 g/dL (3.4-5.0); MAGNESIUM 1.6 mg/dL (1.8-2.4); TOTAL BILIRUBIN 0.7 mg/dL (<0.1-1.0); TOTAL PROTEIN 7.3 g/dL (6.4-8.2)
[2019-08-22 17:09] LABS: BE(vivo) -15.8 mmol/L (-2 to +3); HCO3 8.8 mmol/L (22.0-26.0); PCO2 VENOUS 19.9 mmHg (41.0-51.0); PO2 VENOUS 50.5 mmHg (35.0-45.0)
[2019-08-22 21:23] LABS: ALBUMIN 3.1 g/dL (3.4-5.0); CALCIUM 8.2 mg/dL (8.5-10.1); CREATININE 1.1 mg/dL (0.7-1.3)
[2019-08-22 21:29] LABS: POTASSIUM 4.6 mmol/L (3.5-5.1)
[2019-08-23 00:51] LABS: ALBUMIN 3.1 g/dL (3.4-5.0); CALCIUM 8.1 mg/dL (8.5-10.1); MAGNESIUM 2.2 mg/dL (1.8-2.4); PHOSPHORUS 1.7 mg/dL (2.5-4.9)
[2019-08-23 00:53] VITALS: BP 115/58
[2019-08-23 01:53] VITALS: BP 103/59
[2019-08-23 02:56] VITALS: BP 125/72
--- NOTE | 2019-08-23 04:01 | NUR ---
PT ARRIVED IN ICU FROM ER AT 2024. PT STARTED ON DKA PROTOCOL; ON INSULIN GTT UPON ARRIVAL. PT ALSO STARTED ON CIWA PROTOCOL. LABS REPEATED AT NE, RESULTS INDICATED DKA WAS RESOLVED. DKA PROTOCOL D/C'd AND PT STARTED ON LANTUS AND HUMALOG SLIDING SCALE. PT THEN MOVED TO CRITICAL CARE STEPDOWN FLOOR THIS AM AT 0345. REPORT GIVEN TO DARIEL AT 0300.
[2019-08-23 04:12] VITALS: BP 119/71
--- NOTE | 2019-08-23 04:26 | NUR ---
Patient arrived to 3 at 0400 and was placed on tele, assessed, and oriented to unit. Patient is in bed, the bed alarm is on, and the patient is wearing yellow socks and yellow armband to gaurd against falls.
--- NOTE | 2019-08-23 06:52 | NUR ---
Anthony stated he was having a headache 7/10 and asked for pain med. Upon return, the patient was sleeping and difficult to rouse. fentanyl not administered based on patients level of sedation.
[2019-08-23 07:34] LABS: HEMATOCRIT 39.4 % (42.0-52.0); HEMOGLOBIN 13.2 gm/dL (14.0-18.0); MCHC 33.6 g/dL (28.0-37.0); MCV 89.1 fL (80.0-100.0); RBC 4.42 mil/uL (4.50-6.00); RDW 15.2 % (10.5-14.5); WBC 9.5 thou/uL (4.0-11.0)
[2019-08-23 07:41] LABS: CALCIUM 8.3 mg/dL (8.5-10.1); CREATININE 0.8 mg/dL (0.7-1.3); POTASSIUM 4.5 mmol/L (3.5-5.1)
[2019-08-23 07:46] VITALS: BP 112/69
[2019-08-23 11:14] VITALS: BP 133/67
--- NOTE | 2019-08-23 12:58 | NUR ---
RECEIVED PT'S CARE AROUND 0720; PT. ON BED RESTING WITH EYES CLOSED; REGULAR CHEST RISING NOTICED ON ASSESSMENT; DURING ASSESSMENT C/O HEADACHE; 05/10; NO PRN PO PAIN MEDICATION ON EMAR; PHYSICIAN NOTIFIED; NEW ORDER ON EMAR; AM MEDICATIONS GIVEN; REQUESTED NICOTINE PATCH; PHYSICIAN NOTIFIED; SR ON THE MONITOR; AROUND 1300 PT. REQUESTED TO LEAVE AMA; PHYSICIAN & FOUNDRY TECHNICIAN NOTIFIED; PT. EDUCATED ABOUT LEAVING AMA; ST. UNDERSTANDING; WAITING FOR HOSPITALIST ROUNDING ON PT.; MONITORING; ASSESSMENT CHARGED; FOLLOWING POC;
[2019-08-23 13:41] LABS: HEMATOCRIT 39.4 % (42.0-52.0); HEMOGLOBIN 13.2 gm/dL (14.0-18.0)
--- NOTE | 2019-08-25 07:35 | EKG ---
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 : 1975 Requested By: James Alston Order Number: [id number] MD: Evaristo Delgado Measurements Intervals [place] Rate: 135 P: 87 [place]: 134 QRS: 254 QRSD: 75 T: 55 QT: 305 QTc: 458 Interpretive Statements Sinus tachycardia Leftward axis Poor R wave progression Baseline wander in lead(s) V4 Compared to ECG 04/02/2019 10:52:00 Heart rate has increased Electronically Signed On 08-25-2019 7:35:18 INSTALLATION AND SERVICE TECHNICIAN by Evaristo Delgado [email or web address] <ELECTRONICALLY SIGNED> By: Evaristo Delgado MD, [facility] 08/25/19 0735 1553 1553 Evaristo Delgado MD, [facility] /EPI
--- NOTE | 2019-09-13 09:14 | D ---
[facility] [place] [address] DISCHARGE SUMMARY Name: PASQUALE HANKINS Room #: 350-P [facility] ..#: [id number] Admission: 08/22/19 Attend Phys: James Alston MD Discharge: 08/23/19 Date of : 71 Report #: [id number] THIS REPORT FOR: //name// CC: [facility] physician/PCP James Alston DATE OF SERVICE: 08/23/2019 DISCHARGE SUMMARY ADMISSION DIAGNOSES: 1. Diabetic ketoacidosis. 2. Severe sepsis. 3. Hyperkalemia. 4. Alcohol intoxication. 5. Alcohol withdrawal. HOSPITAL COURSE: For detailed history and physical, please see dictation by Dr. James Alston, done on 08/22/2019 at 1947. The patient was admitted to the hospital with DKA and insulin drip was started, sepsis, fluid bolus was given and alcohol withdrawal protocol CIWA was placed. Potassium was replaced and the patient was empirically started on Rocephin because of the elevated lactic acid. However, chest x-ray did not show any inflammation, pneumonia and urinary analysis indicated 1+ ketones, trace blood, but negative for leukocyte esterase and nitrite and the patient remained afebrile during the hospital stay. Lactic acid was markedly elevated at 7.2 when he presented to the ER, and with hydration, it came down to 3 and then on the morning when I resumed medical care, the patient's lactic acid was 0.8. Vital signs, the patient remained afebrile during this hospital stay with a heart rate ranging from initially when he presented at tachycardia with a heart rate of 138 and had come down to 98 earlier on the morning of 08/23/2019. The patient's blood pressure remained normotensive during this hospital stay except a small duration of 2 hours when he was hypotensive with a systolic blood pressure of 92/55, which with IV fluids came back up and the patient was tachypneic when he presented with respiratory rate of 22 within 2 to 3 hours respiratory rate settled down and stayed around 18 per minute. The patient was restarted back on insulin and insulin drip was stopped in the morning. Nausea had improved and the patient was started on oral intake; however, his CIWA score still remains very high. Initially, it was 20 and came down to 12 and then 7. However, the patient was adamant on leaving home against medical advice. He decided not to even wait until the nurse can remove the IV. I had spent a lot of time in the morning discussing with the patient about all the risk factors with markedly elevated lactic acid and acetone being high and also ___ electrolyte abnormalities; however, the patient did not wait for the electrolyte results to come back. However, his potassium had normalized and magnesium also had normalized. However, the patient has remained hypophosphatemic and did not want to wait for the results to come back. [address] [address] DISCHARGE SUMMARY Name: PASQUALE HANKINS Room #: 350-P [facility] M.R.#: [id number] Admission: 08/22/19 Attend Phys: James Alston MD Discharge: 08/23/19 Date of : 71 Report #: [id number] Anion gap had normalized at midnight. At the time of the patient leaving hospital, it had come down to 11. The patient did not wait for the discharge medications to be return and he informed the nurse that he has Librium prescription from his previous hospitalization discharges and he plans to take a those and if he is not feeling well then he will come back to the hospital; however, he absolutely cannot stay in the hospital and the patient did not wait for the discharge medications to be written. He pulled his IV access by himself. patient had been on: 1. Rocephin. 2. Famotidine. 3. Insulin. 4. Lorazepam. 5. Potassium chloride. 6. Magnesium sulfate. 7. vitamin. 8. Thiamine. But the patient did not wait for any discharge medications to be written and informs that he will see his psychiatrist and refused to share the name of the psychiatrist with the medical team. <ELECTRONICALLY SIGNED> By: Ellen Godoy MD 09/13/19 0914 [id number] Ellen Godoy MD /nt
== END 2019-08-23 15:49 | disposition left against medical advice (07) | DRG 871 ==
LOC: ER 15:45 → EROBS 18:19 → ICU 20:14 → 3W 20:17
PROVIDERS: Internal Medicine; Nurse Practitioner Acute Care; Physician Assistant; ADMIT Internal Medicine
DX: A41.9 Sepsis, unspecified organism (principal); E10.10 Type 1 diabetes mellitus with ketoacidosis without coma; R65.20 Severe sepsis without septic shock; F17.210 Nicotine dependence, cigarettes, uncomplicated; F10.129 Alcohol abuse with intoxication, unspecified; E87.5 Hyperkalemia; E83.39 Other disorders of phosphorus metabolism; E83.42 Hypomagnesemia; Z53.29 Procedure and treatment not carried out because of patient's decision for other reasons; Z79.899 Other long term (current) drug therapy
CPT/HCPCS: 10078